=== PATIENT | female | born 1945 | race African-American/Black ===

== ENCOUNTER 2016-12-05 10:16 | Emergency (ER) | payer MEDICARE ==
[~2016-12-05] VITALS: Ht 157.5 cm; Wt 102.1 kg
[2016-12-05 11:07] LABS: BASO # 0.1 x10^3/uL (0.0-0.2); BASO % 1 % (0-3); EOS # 0.2 x10^3/uL (0.0-0.7); EOS % 3 % (0-3); HEMATOCRIT 35.1 % (36.0-47.0); HEMOGLOBIN 11.4 g/dL (12.0-15.5); LYMPH # 1.4 x10^3/uL (1.0-4.8); LYMPH % 25 % (24-48); MEAN CORPUSCULAR HEMOGLOBIN 32 pg (25-35); MEAN CORPUSCULAR HGB CONC 33 g/dL (31-37); MEAN CORPUSCULAR VOLUME 99 fL (79-100); MONO # 0.5 x10^3/uL (0.0-1.1); MONO % 9 % (0-9); NEUT # 3.3 x10^3uL (1.8-7.7); NEUT % 62 % (31-73); PLATELET COUNT 189 x10^3/uL (140-400); RED BLOOD COUNT 3.54 x10^6/uL (3.50-5.40); WHITE BLOOD COUNT 5.3 x10^3/uL (4.0-11.0)
[2016-12-05 11:08] LABS: HEMOGLOBIN ISTAT 12.2 gm/dL; POTASSIUM ISTAT 4.2 mmol/L (3.5-5.0)
--- NOTE | 2016-12-05 11:14 | RAD ---
Portable AP upright view CXR: Clinical indications: Shortness of breath. Comparison: November 17, 2005 Findings: No acute lung infiltrate or pleural effusion or pulmonary edema or lung mass or pneumothorax is seen. The heart size, pulmonary vasculature, mediastinum and both niurka are unremarkable. Impression: No acute radiographic abnormality is seen.
--- NOTE | 2016-12-05 11:18 | EKG ---
[address] [address] Test Date: 2016-12-05 Test Time: 11:03:12 Pat Name: ANGEL HALL Department: Room: Gender: F Quality Assurance Manager: ALEJANDRA : 1945 Requested By: LIZZY BROWN Order Number: [id number] Reading MD: Measurements Intervals [place] Rate: 74 P: 31 MN: 208 QRS: -11 QRSD: 92 T: 24 QT: 368 QTc: 413 Interpretive Statements SINUS RHYTHM VENTRICULAR PREMATURE COMPLEX(ES) LEFTWARD AXIS ABNORMAL ECG RI6.01 Unconfirmed report No previous ECG available for comparison
--- NOTE | 2016-12-05 11:22 | ED.ADGEN ---
Past History Past Medical History: Hypertension Past Surgical History: No Surgical History Alcohol Use: None Drug Use: None Adult General Chief Complaint Chief Complaint cough, pain, sob HPI HPI Patient is a 71 year old female who presents with 3 days off, sinus congestion, shortness of breath. Patient reports exertional dyspnea, no orthopnea or increased peripheral edema. Patient denies any history of lung or cardiac disease. Never been a smoker. Denies any known fevers. Daughter offered her Mucinex but believes that she wasn't taking it. Has not taken anything for her pain. She reports anterior and posterior pain in her torso, worsened with cough or movement. Has a follow-up appointment with Dr. Manzanares tomorrow. Review of Systems Review of Systems Constitutional: Denies fever or chills [] Eyes: Denies change in visual acuity, redness, or eye pain [] HENT: Denies sore throat [] Respiratory: Per history of present illness Cardiovascular: No additional information not addressed in HPI [] GI: Denies abdominal pain, nausea, vomiting, bloody stools or diarrhea [] : Denies dysuria or hematuria [] Musculoskeletal: Denies back pain or joint pain [] Integument: Denies rash or skin lesions [] Neurologic: Denies headache, focal weakness or sensory changes [] Current Medications Current Medications Current Medications Medications (Trade) Dose Ordered Sig/Canelo Start Time Stop Time Status Last Admin Dose Admin Albuterol Sulfate (Ventolin) 2.5 mg 1X ONCE 12/05/16 11:30 12/05/16 11:31 DC 12/05/16 11:32 2.5 MG Albuterol/ Ipratropium (Duoneb) 3 ml 1X ONCE 12/05/16 11:30 12/05/16 11:31 DC 12/05/16 11:23 3 ML Ketorolac Tromethamine (Toradol) 30 mg 1X ONCE 12/05/16 11:30 12/05/16 11:31 DC 12/05/16 11:51 30 MG Allergies Allergies Allergies Coded Allergies Type Severity Reaction Last Updated Verified No Known Drug Allergies 12/05/16 No Physical Exam Physical Exam Constitutional: Well developed, well nourished, no acute distress, non-toxic appearance. Morbid obesity, short of breath with planed forward HENT: Normocephalic, atraumatic, bilateral external ears normal, oropharynx moist, no oral exudates, nose normal. [] Eyes: PERRLA, EOMI, conjunctiva normal, no discharge. [] Neck: Normal range of motion, no tenderness, supple, no stridor. [] Cardiovascular:Heart rate regular rhythm, systolic aortic murmur Lungs & Thorax: Bilateral breath sounds, diminished on the right compared to the left with an expiratory wheeze, no appreciable crackles Abdomen: Bowel sounds normal, soft, no tenderness, no masses, no pulsatile masses. [] Skin: Warm, dry, no erythema, no rash. [] Back: No tenderness, no CVA tenderness. [] Extremities: No tenderness, no cyanosis, no clubbing, ROM intact, trace bilateral lower extremity edema Neurologic: Alert and oriented X 3, normal motor function, normal sensory function, no focal deficits noted. [] Psychologic: Affect normal, judgement normal, mood normal. [] Current Patient Data Vital Signs Vital Signs Date Time Temp Pulse Resp B/P Pulse Ox O2 Delivery O2 Flow Rate FiO2 12/05/16 13:15 63 20 135/68 96 Room Air 12/05/16 10:16 98.6 Lab Results Laboratory Tests Test 12/05/16 09:47 White Blood Count 5.3x10^3/uL (4.0-11.0) Red Blood Count 3.54x10^6/uL (3.50-5.40) Hemoglobin 11.4g/dL (12.0-15.5) L POC Hemoglobin 12.2gm/dL Hematocrit 35.1% (36.0-47.0) L POC Hematocrit 36% Mean Corpuscular Volume 99fL (79-100) Mean Corpuscular Hemoglobin 32pg (25-35) Mean Corpuscular Hemoglobin Concent 33g/dL (31-37) Red Cell Distribution Width 16.0% (11.5-14.5) H Platelet Count 189x10^3/uL (140-400) Neutrophils (%) (Auto) 62% (31-73) Lymphocytes (%) (Auto) 25% (24-48) Monocytes (%) (Auto) 9% (0-9) Eosinophils (%) (Auto) 3% (0-3) Basophils (%) (Auto) 1% (0-3) Neutrophils # (Auto) 3.3x10^3uL (1.8-7.7) Lymphocytes # (Auto) 1.4x10^3/uL (1.0-4.8) Monocytes # (Auto) 0.5x10^3/uL (0.0-1.1) Eosinophils # (Auto) 0.2x10^3/uL (0.0-0.7) Basophils # (Auto) 0.1x10^3/uL (0.0-0.2) POC Sodium 141mmol/L (135-145) POC Potassium 4.2mmol/L (3.5-5.0) POC Chloride 102mmol/L (98-110) POC Total CO2 28mmol/L (23-32) Anion Gap 17mmol/L (6-14) H POC Blood Urea Nitrogen 8mg/dL (8-26) POC Creatinine 1.0mg/dL (0.5-1.4) Glucose Level 107mg/dL (60-99) H POC Ionized Calcium (Viviana) 1.21mmol/L (1.13-1.32) Total Bilirubin 0.8mg/dL (0.2-1.0) Direct Bilirubin 0.2mg/dL (0.0-0.2) Aspartate Amino Transferase (AST) 15U/L (15-37) Alanine Aminotransferase (ALT) 15U/L (14-59) Alkaline Phosphatase 93U/L (46-116) Creatine Kinase 78U/L (26-192) Creatine Kinase MB (Mass) < 0.5ng/mL (0.0-3.6) Creatine Kinase MB Relative Index 0.6% (0-4) POC Troponin I 0.00ng/ml (<0.08) XO-Amr-M-Type Natriuretic Peptide 37pg/mL (0-124) Total Protein 8.1g/dL (6.4-8.2) Albumin 3.2g/dL (3.4-5.0) L EKG EKG [] Radiology/Procedures Radiology/Procedures CXR: I reviewed the patient's chest x-ray which has mild cardiomegaly, trace pleural effusions, bilateral lower lobe atelectasis versus edema, radiology read as no acute abnormality [] Course & Med Decision Making Course & Med Decision Making Pertinent Labs and Imaging studies reviewed. (See chart for details) Chest x-ray and lab work ordered. Patient given DuoNeb breathing treatment along with albuterol and IV Toradol. Pt feeling improved, her repeat lung exam has much improved air movement and wheezing subsided. No clear signs of pneumonia. Pt agreeable to dc plan of prednisone burst, albuterol with inhaler and codeine/guaifenisin cough syrup. f /u with PCP tomorrow and inform her of heart murmur and if this is new, echo indicated. Final Impression Final Impression Bronchospasm Viral upper respiratory infection Heart murmur[] Problems: Dragon Disclaimer Dragon Disclaimer This electronic medical record was generated, in whole or in part, using a voice recognition dictation system. LIZZY BROWN MD Dec 05, 2016 11:22
[2016-12-05] MEDS ORDERED: KETOROLAC 30 MG/ML VIAL. IV ONE (11:30)
[2016-12-05] MEDS ORDERED: IPRATRPIUM/ALBUTEROL 0.5/2.5MG 3 ML NEBU. NEB ONE (11:30)
[2016-12-05] MEDS ORDERED: ALBUTEROL SULFATE 2.5 MG/3 ML NEBU. NEB ONE (11:30)
[2016-12-05 12:44] LABS: ALBUMIN 3.2 g/dL (3.4-5.0); ALK PHOS 93 U/L (46-116); ALT (SGPT) 15 U/L (14-59); AST (SGOT) 15 U/L (15-37); CREATINE KINASE 78 U/L (26-192); TOTAL BILIRUBIN 0.8 mg/dL (0.2-1.0); TOTAL PROTEIN 8.1 g/dL (6.4-8.2)
[2016-12-05] MEDS ORDERED: GUAI120L35 PO (13:07)
[2016-12-05] MEDS ORDERED: ALBU8.5H3 INH (13:07)
[2016-12-05] MEDS ORDERED: PRED50TA PO (13:07)
[2016-12-05 13:09] LABS: DIRECT BILIRUBIN 0.2 mg/dL (0.0-0.2)
[2016-12-05 13:15] VITALS: BP 135/68
== END 2016-12-05 13:15 | disposition home or self-care (01) ==
LOC: ER 10:16
DX: J98.01 Acute bronchospasm (principal); J06.9 Acute upper respiratory infection, unspecified; R01.1 Cardiac murmur, unspecified; I10 Essential (primary) hypertension
CPT/HCPCS: 36415; 71010; 80047; 80076; 82553; 83880; 84484; 85027; 93005; 94640; 96374; 99285; J1885; J7613; J7620

== ENCOUNTER 2017-02-22 10:59 | Emergency (ER) | payer MEDICARE ==
[~2017-02-22] VITALS: Ht 157.5 cm; Wt 126.6 kg
[~2017-02-22 10:59] MED LIST: ALBU8.5H8 INH; GUAI120L35 PO; PRED50TA PO
[2017-02-22 11:58] LABS: BASO % 1 % (0-3); EOS # 0.1 x10^3/uL (0.0-0.7); EOS % 3 % (0-3); HEMATOCRIT 34.2 % (36.0-47.0); HEMOGLOBIN 11.4 g/dL (12.0-15.5); LYMPH % 21 % (24-48); MEAN CORPUSCULAR HEMOGLOBIN 32 pg (25-35); MEAN CORPUSCULAR HGB CONC 33 g/dL (31-37); MEAN CORPUSCULAR VOLUME 97 fL (79-100); MONO # 0.4 x10^3/uL (0.0-1.1); MONO % 8 % (0-9); NEUT # 3.1 x10^3uL (1.8-7.7); NEUT % 67 % (31-73); PLATELET COUNT 188 x10^3/uL (140-400); RED BLOOD COUNT 3.54 x10^6/uL (3.50-5.40); RED CELL DISTRIBUTION WIDTH 15.9 % (11.5-14.5); WHITE BLOOD COUNT 4.6 x10^3/uL (4.0-11.0)
[2017-02-22] MEDS ORDERED: ASPIRIN 81 MG TAB.CHEW PO ONE (12:00)
[2017-02-22 12:15] LABS: ALBUMIN 3.3 g/dL (3.4-5.0); ALBUMIN/GLOBULIN RATIO 0.7 (1.0-1.7); CREATININE 1.1 mg/dL (0.6-1.0); GFR 59.1; MAGNESIUM 1.9 mg/dL (1.8-2.4); POTASSIUM 3.7 mmol/L (3.5-5.1); TOTAL BILIRUBIN 0.7 mg/dL (0.2-1.0)
[2017-02-22] MEDS ORDERED: LOSA1TAB17 PO (12:29)
[2017-02-22] MEDS ORDERED: ASPI-630 PO (12:29)
--- NOTE | 2017-02-22 12:43 | RAD ---
Indication: Chest pain and bilateral lower extremity swelling. Time of exam 12:33 PM Correlation is made with prior study from 12/05/2016. FINDINGS: The heart size is normal. The lungs are clear. No pleural effusion or pneumothorax is identified. The pulmonary vascularity is normal. IMPRESSION: No acute abnormality detected.
--- NOTE | 2017-02-22 12:44 | RAD ---
Indication: Bilateral leg swelling and pain. Grayscale, color-flow and duplex Doppler evaluation of bilateral lower extremity deep venous systems was performed. FINDINGS: There is no evidence of right or left lower extremity DVT. Both lower extremity deep venous systems showed normal compressibility with normal response to augmentation and Valsalva. No fluid collection or mass is detected. IMPRESSION: No evidence of right or left lower extremity DVT.
[2017-02-22] MEDS ORDERED: IOHEXOL 300 MG/ML 75 ML VIAL. IV ONE (12:45)
[2017-02-22 13:04] LABS: BACTERIA,URINE MOD /HPF (0-FEW); BILIRUBIN,URINE NEG (NEG); CLARITY,URINE HAZY; COLOR,URINE YELLOW; GLUCOSE,URINE NEG (NEG); NITRITE,URINE NEG (NEG); UROBILINOGEN,URINE 0.2 mg/dL (0.2 mg/dL)
[2017-02-22 13:05] LABS: SQUAMOUS EPITHELIAL CELL,UR MOD /LPF
--- NOTE | 2017-02-22 13:27 | RAD ---
Indication: Chest pain. Axial imaging through the chest was performed after the administration of intravenous contrast and utilizing the CT angiography protocol. Multiplanar, 3-D and MIP reformations were also performed. Evaluation of the pulmonary arterial system is without evidence of thromboembolism. No filling defects are seen. The thoracic aorta is normal caliber. No dissection is identified. The heart appears enlarged. No pericardial or pleural fluid is identified. No definite axillary, hilar or mediastinal lymphadenopathy is detected. No parenchymal mass or infiltrate is seen. The upper abdomen is unremarkable. Impression: Cardiomegaly. There is no evidence of pulmonary embolism or thoracic aortic dissection. PQRS Compliance Statement: One or more of the following individualized dose reduction techniques were utilized for this examination: 1. Automated exposure control 2. Adjustment of the mA and/or kV according to patient size 3. Use of iterative reconstruction technique
[2017-02-22] MEDS ORDERED: FUROSEMIDE 40 MG/4 ML VIAL IVP ONE (13:30)
[2017-02-22 14:10] VITALS: BP 168/90
--- NOTE | 2017-02-22 14:13 | PHYS DOC ---
General Chief Complaint: LOWER EXT PAIN Stated Complaint: LOWER EXT PAIN/RIGHT ARM PAIN Time Seen by MD: 11:20 Source: patient Exam Limitations: no limitations Problems: History of Present Illness Initial Comments Patient is a 71-year-old female who comes to the ED complaining of leg pain. 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 She had no arm or neck symptoms and those symptoms did resolve spontaneously after a short period. She states she's had some intermittent chest discomforts prior to that however has none since. She says she's had increasing lower extremity swelling over the past weeks to months she denies trauma she denies any shortness of breath or increased abdominal girth. She has a painful lump at the medial aspect of her left lower leg which becomes pronounced when she is standing she also has diffuse bilateral lower extremity tenderness. She also mentions she's had intermittent discomforts as she points to her right sided deltoid muscle insertion but states she's had no discomfort there recently. She denies any new medications she denies cough shortness of breath dyspnea on exertion or claudication symptoms. Her leg swelling improves each night and she says when she wakes in the mornings no swelling is noted. She's been recommended to wear YOMAIRA hose but has not followed up with that. In the department she only complains of bilateral lower extremity discomfort with movement. Timing/Duration: other Severity: moderate Modifying Factors: worse with movement, improves with rest Associated Symptoms: chest pain, diaphoresis, malaise, other Allergies: Coded Allergies: No Known Drug Allergies (Unverified , 12/05/16) Past Medical History Medical History: other (hypertension, left eye blindness, pulmonary embolism, heart murmur) Surgical History: no surgical history Social History Smoker: non-smoker Alcohol: none Drugs: none Review of Systems Constitutional: see HPI, denies chills, denies fever Respiratory: denies cough, denies orthopnea, denies wheezing Cardiovascular: chest pain, edema, denies palpitations, denies syncope Gastrointestinal: denies abdominal pain, denies diarrhea, denies nausea, denies vomiting Musculoskeletal: see HPI, denies back pain, denies joint swelling, denies neck pain Psychiatric/Neurological: denies headache, denies numbness, denies paresthesia , denies weakness Hematologic/Lymphatic: denies blood clots, denies easy bleeding, denies easy bruising Physical Exam General Appearance: no apparent distress, obese Eyes: right eye normal inspection, right eye PERRL, right eye EOMI, left eye other (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) Ear, Nose, Throat: hearing grossly normal, normal ENT inspection, normal pharynx Neck: non-tender, supple Respiratory: chest non-tender, normal breath sounds, no respiratory distress Cardiovascular: normal peripheral pulses, bradycardia, systolic murmur (II/ JONATHON LSB), other (3+ pitting lower extremity edema bilaterally involving the lower legs) Gastrointestinal: normal bowel sounds, non tender, soft Back: no CVA tenderness, no vertebral tenderness Extremities: normal range of motion, other (3+ pitting lower extremity edema involving the lower legs there are no skin changes) Neurologic/Psychiatric: 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 Interpreted by me Two-view chest: No acute cardiopulmonary abnormality, reviewed by me. Lower extremity Dopplers bilaterally: No acute findings negative for DVT. PATIENT: ANGEL HALL ACCOUNT: [id number] : 1945 LOCATION: ER AGE: 71 SEX: F EXAM STATUS: REG ER ORD. PHYSICIAN: ISAC ANDUJAR DO REASON: cp, elev d-dimer, h/o PE PROCEDURE: CT ANGIOGRAPHY CHEST Indication: Chest pain. Axial imaging through the chest was performed after the administration of intravenous contrast and utilizing the CT angiography protocol. Multiplanar, 3-D and MIP reformations were also performed. Evaluation of the pulmonary arterial system is without evidence of thromboembolism. No filling defects are seen. The thoracic aorta is normal caliber. No dissection is identified. The heart appears enlarged. No pericardial or pleural fluid is identified. No definite axillary, hilar or mediastinal lymphadenopathy is detected. No parenchymal mass or infiltrate is seen. The upper abdomen is unremarkable. Impression: Cardiomegaly. There is no evidence of pulmonary embolism or thoracic aortic dissection. PQRS Compliance Statement: One or more of the following individualized dose reduction techniques were utilized for this examination: 1. Automated exposure control 2. Adjustment of the mA and/or kV according to patient size 3. Use of iterative reconstruction technique DICTATED AND SIGNED BY: JOHNATHON LUA MD DATE: 02/22/17 1322 CC: MILAGROS STARKEY MD; ISAC ANDUJAR DO ~ Pertinent labs: D-dimer 2.15, BNP 141, urine 11, creatinine 1.1, creatine kinase 54, troponin less than 0.017 Urinalysis contained products of infection with squamous epithelial contamination, will await culture and sensitivities. I discussed findings at length with the patient. She reiterates the last episode of chest discomfort was Saturday, 5 days ago. Cardiac enzymes are negative , although d-dimer is elevated lower extremity Dopplers as well as CTA of the chest negative for thrombosis. She has no arm tenderness here in the department. She's had no new or progressive symptoms in the department and I feel she is stable for discharge. She received Lasix 20 mg IV in the emergency department and has begun to diurese. I discussed Lasix and potassium as well as YOMAIRA hose and elevation of the lower extremities. I discussed the need for outpatient cardiology evaluation and I feel she is stable for discharge home. She is in agreement and wishes to follow-up as an outpatient without further evaluation in this department. She depressed agreement and understanding of treatment plan. Departure Time of Disposition: 14:16 Disposition: 01 HOME, SELF-CARE Diagnosis: Lower extremity edema, elevated d-dimer, h/o chest Condition: STABLE Patient Instructions: Chest Pain (Nonspecific), [id number], D-Dimer Test, Edema, [id number] Additional Instructions: Elevate lower extremities as tolerated, "pump the brakes" at commercial breaks as discussed. Wear YOMAIRA hose during the day while you are up and on your feet to prevent swelling and complications due to swelling. Continue current medications including aspirin daily. Your urine was sent for culture, those results will be available for your physician in 2-3 days. [id number] baby aspirin daily. Prescription: Lasix 20 mg take 1 daily, potassium chloride 20 mEq daily, [place] 5 mg #10 Take [place] with food and stool softeners to avoid adverse gastrointestinal effects. Follow-up with Dr. Starkey Saturday for recheck and to discuss outpatient cardiology referral. Return to the ED with new or changing symptoms. ISAC ANDUJAR DO Feb 22, 2017 14:13
--- NOTE | 2017-02-22 14:45 | EKG ---
[address] [address] Test Date: 2017-02-22 Test Time: 13:05:20 Pat Name: ANGEL HALL Department: Room: Gender: F Operating Room Rn: : 1945 Requested By: ISAC ANDUJAR Order Number: [id number] Reading MD: Measurements Intervals [place] Rate: 55 P: 36 AL: 258 QRS: -16 QRSD: 92 T: 17 QT: 410 QTc: 394 Interpretive Statements SINUS RHYTHM PROLONGED AL INTERVAL LEFTWARD AXIS QRS(T) CONTOUR ABNORMALITY CONSIDER ANTEROLATERAL MYOCARDIAL DAMAGE RI6.01 Unconfirmed report No previous ECG available for comparison
== END 2017-02-22 14:30 | disposition home or self-care (01) ==
LOC: ER 10:59
DX: R60.0 Localized edema (principal); R79.1 Abnormal coagulation profile; R07.89 Other chest pain; I10 Essential (primary) hypertension; H54.42 Blindness, left eye, normal vision right eye; Z86.711 Personal history of pulmonary embolism
CPT/HCPCS: 36415; 71020; 71275; 80053; 81001; 82550; 83735; 83880; 84484; 85027; 85379; 87086; 93005; 93970; 96374; 99285; J1940; Q9967

== ENCOUNTER 2017-06-14 16:38 | Emergency (ER) | payer MEDICARE ==
[~2017-06-14] VITALS: Ht 157.5 cm; Wt 118.4 kg
[~2017-06-14 16:38] MED LIST changes: +ASPI-630 PO; +LOSA1TAB22 PO
[2017-06-14] MEDS ORDERED: DICL100G18 TP (17:50)
--- NOTE | 2017-06-14 17:55 | PHYS DOC ---
Past History Past Medical History: Glaucoma, Hypertension Past Surgical History: Other Alcohol Use: None Drug Use: None Adult General Chief Complaint Chief Complaint: ELBOW PROBLEM HPI HPI Patient is a 72 year old F who presents with left elbow pain over the past 4 days. She feels that her symptoms are worse with activity and improved with rest. She also feels that palpation makes her pain worse. Her pain is associated with mild swelling over the lateral elbow. She has no injury. She has no other associated symptoms. Review of Systems Review of Systems Constitutional: Denies fever or chills [] Eyes: Denies change in visual acuity, redness, or eye pain [] HENT: Denies nasal congestion or sore throat [] Respiratory: Denies cough or shortness of breath [] Cardiovascular: No additional information not addressed in HPI [] GI: Denies abdominal pain, nausea, vomiting, bloody stools or diarrhea [] : Denies dysuria or hematuria [] Musculoskeletal: Negative except history of present illness Integument: Denies rash or skin lesions [] Neurologic: Denies headache, focal weakness or sensory changes [] Endocrine: Denies polyuria or polydipsia [] Family History Family History Noncontributory Current Medications Current Medications Medications reviewed Allergies Allergies Allergies Coded Allergies Type Severity Reaction Last Updated Verified No Known Drug Allergies 12/05/16 No Physical Exam Physical Exam Constitutional: Well developed, well nourished, no acute distress, non-toxic appearance. [] HENT: Normocephalic, atraumatic, Eyes: EOMI, conjunctiva normal, no discharge. [] Neck: Normal range of motion, no tenderness, supple, no stridor. [] Cardiovascular:Heart rate regular rhythm, no murmur [] Lungs & Thorax: Bilateral breath sounds clear to auscultation [] Abdomen: Bowel sounds normal, soft, no tenderness, no masses, no pulsatile masses. [] Skin: Warm, dry, no erythema, no rash. [] Extremities: Left elbow: Mild swelling over the lateral epicondyle, mild tenderness to palpation over the lateral epicondyle, normal range of motion, strength 5 out of 5 however tenderness with resistance to wrist extension. Neurovascularly intact Neurologic: Alert and oriented X 3, normal motor function, normal sensory function, no focal deficits noted. [] Psychologic: Affect normal, judgement normal, mood normal. [] Current Patient Data Vital Signs Normal vital signs. Please review nursing recommendation for specifics EKG EKG [] Radiology/Procedures Radiology/Procedures Ultrasound left upper extremity Impressions: No DVT. Course & Med Decision Making Course & Med Decision Making Pertinent Labs and Imaging studies reviewed. (See chart for details) Lydia was most concerned that she had a DVT in her arm. Ultrasound was found to be negative for DVT. Her symptoms are most consistent with lateral epicondylitis Dragon Disclaimer Dragon Disclaimer This chart was dictated in whole or in part using Voice Recognition software in a busy, high-work load, and often noisy Emergency Department environment. It may contain unintended and wholly unrecognized errors or omissions. Departure Departure: Impression: Primary Impression: Lateral epicondylitis of elbow Condition: STABLE Referrals: MILAGROS STARKEY MD (PCP) Patient Instructions: Epicondylitis, Lateral (Tennis Elbow) with Rehab- [facility], Tennis Elbow Additional Instructions: Lydia was seen in the emergency department for elbow pain. No emergency medical condition was found on history or physical exam. She did have a normal ultrasound. Her symptoms are most consistent with tennis elbow or lateral epicondylitis. She was given a prescription for Voltaren gel and was advised follow-up with her primary care doctor in the next 3-5 days for further management. Scripts Diclofenac Sodium (VOLTAREN) 100 Gm Gel..gram. 1 GM TP QID, #100 GM 2 Refills Prov: SCARLETT REYNOLDS MD 06/14/17 SCARLETT REYNOLDS MD Jun 14, 2017 17:55
--- NOTE | 2017-06-14 17:59 | RAD ---
Left Upper Extremity Venous Doppler Ultrasound Indication: Left elbow pain. Comparison: None. Procedure: Color Doppler, spectral Doppler, and grayscale imaging was performed of the upper extremity. Imaged veins were jugular, subclavian, axillary, brachial, radial, ulnar, basilic, and cephalic veins. Findings: The veins are patent and demonstrate normal Doppler flow dynamics. There is no evidence of upper extremity venous thrombosis. Impression: No evidence of left upper extremity deep venous thrombosis. Electronically signed by: Narayan Campa MD (06/14/2017 5:55 PM) [facility]
[2017-06-14 18:10] VITALS: BP 156/78
== END 2017-06-14 18:10 | disposition home or self-care (01) ==
LOC: ER 16:38
DX: M77.12 Lateral epicondylitis, left elbow (principal); I10 Essential (primary) hypertension
CPT/HCPCS: 93971; 99284-25

== ENCOUNTER 2017-10-12 11:08 | Emergency (ER) | payer MEDICARE ==
[~2017-10-12] VITALS: Ht 157.5 cm; Wt 118.4 kg
[~2017-10-12 11:08] MED LIST changes: +DICL100G18 TP
[2017-10-12 11:47] LABS: BASO % 1 % (0-3); EOS # 0.1 x10^3/uL (0.0-0.7); EOS % 3 % (0-3); HEMATOCRIT 35.5 % (36.0-47.0); HEMOGLOBIN 11.9 g/dL (12.0-15.5); LYMPH # 1.4 x10^3/uL (1.0-4.8); LYMPH % 32 % (24-48); MEAN CORPUSCULAR HEMOGLOBIN 32 pg (25-35); MEAN CORPUSCULAR HGB CONC 34 g/dL (31-37); MEAN CORPUSCULAR VOLUME 97 fL (79-100); MONO # 0.4 x10^3/uL (0.0-1.1); MONO % 10 % (0-9); NEUT # 2.3 x10^3uL (1.8-7.7); NEUT % 54 % (31-73); PLATELET COUNT 216 x10^3/uL (140-400); RED BLOOD COUNT 3.66 x10^6/uL (3.50-5.40); RED CELL DISTRIBUTION WIDTH 15.9 % (11.5-14.5); WHITE BLOOD COUNT 4.2 x10^3/uL (4.0-11.0)
[2017-10-12 11:54] LABS: CALCIUM 9.2 mg/dL (8.5-10.1); CREATININE 0.9 mg/dL (0.6-1.0); GFR 74.3; POTASSIUM 3.6 mmol/L (3.5-5.1)
[2017-10-12 12:20] VITALS: BP 188/80
--- NOTE | 2017-10-12 12:22 | PHYS DOC ---
Past History Past Medical History: Glaucoma, Hypertension Past Surgical History: Other Alcohol Use: None Drug Use: None Adult General Chief Complaint Chief Complaint: CHEST PAIN HPI HPI Patient is a 72 year old F who presents with sharp left-sided chest and shoulder pain that happened just prior to arrival and lasted only seconds. She had no associated symptoms at this pain. Her pain did recur a total of 2 episodes prior to arrival. Upon evaluation she had no symptoms. She has no other associated symptoms. She has no other exacerbating or alleviating factors. Review of Systems Review of Systems Constitutional: Denies fever or chills [] Eyes: Denies change in visual acuity, redness, or eye pain [] HENT: Denies nasal congestion or sore throat [] Respiratory: Denies cough or shortness of breath [] Cardiovascular: No additional information not addressed in HPI [] GI: Denies abdominal pain, nausea, vomiting, bloody stools or diarrhea [] : Denies dysuria or hematuria [] Musculoskeletal: Denies back pain or joint pain [] Integument: Denies rash or skin lesions [] Neurologic: Denies headache, focal weakness or sensory changes [] Endocrine: Denies polyuria or polydipsia [] All other systems were reviewed and found to be within normal limits, except as documented in this note. Family History Family History No pertinent family medical history was reported Current Medications Current Medications Current medications reviewed Allergies Allergies Allergies Coded Allergies Type Severity Reaction Last Updated Verified No Known Drug Allergies 12/05/16 No Physical Exam Physical Exam Constitutional: Well developed, well nourished, no acute distress, non-toxic appearance. [] HENT: Normocephalic, atraumatic, Eyes: EOMI, conjunctiva normal, no discharge. [] Neck: Normal range of motion, no tenderness, supple, no stridor. [] Cardiovascular:Heart rate regular rhythm, Lungs & Thorax: Bilateral breath sounds clear to auscultation [] Abdomen: Bowel sounds normal, soft, no tenderness, no masses, no pulsatile masses. [] Skin: Warm, dry, no erythema, no rash. [] Back: No tenderness, no CVA tenderness. [] Extremities: No tenderness, no cyanosis, no clubbing, ROM intact, no edema. [] Neurologic: Alert and oriented X 3, normal motor function, normal sensory function, no focal deficits noted. [] Psychologic: Affect normal, judgement normal, mood normal. [] Current Patient Data Vital Signs Vital Signs Date Time Temp Pulse Resp B/P (MAP) Pulse Ox O2 Delivery O2 Flow Rate FiO2 10/12/17 11:08 98.1 58 18 99 Room Air Lab Results Laboratory Tests Test 10/12/17 11:25 10/12/17 11:32 White Blood Count 4.2 x10^3/uL (4.0-11.0) Red Blood Count 3.66 x10^6/uL (3.50-5.40) Hemoglobin 11.9 g/dL (12.0-15.5) L Hematocrit 35.5 % (36.0-47.0) L Mean Corpuscular Volume 97 fL (79-100) Mean Corpuscular Hemoglobin 32 pg (25-35) Mean Corpuscular Hemoglobin Concent 34 g/dL (31-37) Red Cell Distribution Width 15.9 % (11.5-14.5) H Platelet Count 216 x10^3/uL (140-400) Neutrophils (%) (Auto) 54 % (31-73) Lymphocytes (%) (Auto) 32 % (24-48) Monocytes (%) (Auto) 10 % (0-9) H Eosinophils (%) (Auto) 3 % (0-3) Basophils (%) (Auto) 1 % (0-3) Neutrophils # (Auto) 2.3 x10^3uL (1.8-7.7) Lymphocytes # (Auto) 1.4 x10^3/uL (1.0-4.8) Monocytes # (Auto) 0.4 x10^3/uL (0.0-1.1) Eosinophils # (Auto) 0.1 x10^3/uL (0.0-0.7) Basophils # (Auto) 0.0 x10^3/uL (0.0-0.2) Sodium Level 142 mmol/L (136-145) Potassium Level 3.6 mmol/L (3.5-5.1) Chloride Level 106 mmol/L (98-107) Carbon Dioxide Level 28 mmol/L (21-32) Anion Gap 8 (6-14) Blood Urea Nitrogen 18 mg/dL (7-20) Creatinine 0.9 mg/dL (0.6-1.0) Estimated GFR (Cockcroft-Gault) 74.3 Glucose Level 91 mg/dL (70-99) Calcium Level 9.2 mg/dL (8.5-10.1) POC Troponin I 0.01 ng/ml (<0.08) EKG EKG Normal sinus rhythm, no ST changes, normal QRS interval Radiology/Procedures Radiology/Procedures [] Course & Med Decision Making Course & Med Decision Making Pertinent Labs and Imaging studies reviewed. (See chart for details) [] Dragon Disclaimer Dragon Disclaimer This electronic medical record was generated, in whole or in part, using a voice recognition dictation system. Departure Departure: Impression: Primary Impression: Muscle spasm Disposition: HOME, SELF-CARE Condition: STABLE Referrals: MILAGROS STARKEY MD (PCP) Patient Instructions: Muscle Cramps Additional Instructions: Lydia was seen in the emergency department for chest pain. No emergency medical condition was found on history or physical exam. She was found to have a normal EKG and labs. Her symptoms are most consistent with muscle spasm. She was encouraged to return to the emergency room if she develops new or worsening symptoms. She was also advised follow-up with her primary care doctor as needed for further management. SCARLETT REYNOLDS MD Oct 12, 2017 12:22
--- NOTE | 2017-10-12 17:08 | EKG ---
[address] [address] Test Date: 2017-10-12 Test Time: 11:18:21 Pat Name: ANGEL HALL Department: Room: Gender: F Station Attendant: ALEJANDRA : 1945 Requested By: SCARLETT REYNOLDS Order Number: [id number] Reading MD: Grayson Felton Measurements Intervals [place] Rate: 66 P: 26 RI: 244 QRS: -20 QRSD: 94 T: 23 QT: 382 QTc: 402 Interpretive Statements SINUS RHYTHM PROLONGED RI INTERVAL LEFTWARD AXIS ABNORMAL ECG RI6.01 Compared to ECG 02/22/2017 13:05:20 No significant changes Electronically Signed On 10-16-2017 9:49:53 COTTON HEADER by Grayson Felton
== END 2017-10-12 12:20 | disposition home or self-care (01) ==
LOC: ER 11:08
DX: M62.838 Other muscle spasm (principal); R07.89 Other chest pain; M25.512 Pain in left shoulder; I10 Essential (primary) hypertension
CPT/HCPCS: 36415; 80048; 84484; 85025; 93005; 99285-25

== ENCOUNTER 2018-01-19 14:46 | Emergency (ER) | payer MEDICARE ==
[2018-01-19 15:28] LABS: BASO % 1 % (0-3); EOS # 0.1 x10^3/uL (0.0-0.7); EOS % 1 % (0-3); HEMATOCRIT 38.1 % (36.0-47.0); HEMOGLOBIN 12.6 g/dL (12.0-15.5); LYMPH # 1.5 x10^3/uL (1.0-4.8); LYMPH % 26 % (24-48); MEAN CORPUSCULAR HEMOGLOBIN 33 pg (25-35); MEAN CORPUSCULAR HGB CONC 33 g/dL (31-37); MEAN CORPUSCULAR VOLUME 99 fL (79-100); MONO # 0.5 x10^3/uL (0.0-1.1); MONO % 9 % (0-9); NEUT # 3.6 x10^3uL (1.8-7.7); NEUT % 63 % (31-73); PLATELET COUNT 188 x10^3/uL (140-400); RED BLOOD COUNT 3.83 x10^6/uL (3.50-5.40); RED CELL DISTRIBUTION WIDTH 16.5 % (11.5-14.5); WHITE BLOOD COUNT 5.7 x10^3/uL (4.0-11.0)
--- NOTE | 2018-01-19 15:29 | RAD ---
CHEST PA LATERAL History: Short of breath x 2 days Comparison: February 22, 2017 Findings: 2 views of the chest are submitted. There is no infiltrate, pneumothorax, or effusion. The cardiac silhouette is within normal limits in size. The trachea is in the midline. No acute osseous abnormality is identified. There is atherosclerotic calcification near the aortic arch. Impression: 1. There is no evidence of acute cardiopulmonary disease. Electronically signed by: Laith Aranda MD (01/19/2018 3:25 PM) [facility]
--- NOTE | 2018-01-19 15:34 | PHYS DOC ---
Past History Past Medical History: Glaucoma, Hypertension Past Surgical History: Other Alcohol Use: None Drug Use: None Adult General Chief Complaint Chief Complaint: SHORTNESS OF BREATH [facility] HPI 72-year-old female presents with progressive shortness of breath over the last 1 week. 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 The patient has noticed increased shortness of breath with exertion lately. At rest, the shortness of breath goes away. She denies any chest pain or diaphoresis. The patient also states there is some increased swelling of her lower extremities. She has no history of heart problems. She has no history of COPD. She denies fever or chills. She takes medication for blood pressure, but only murmurs to take it about every other day. She has never had a stress test or cardiac catheter. No diagnosis of CHF. Review of Systems Review of Systems Constitutional: Denies fever or chills [] Eyes: Denies change in visual acuity, redness, or eye pain [] HENT: Denies nasal congestion or sore throat [] Respiratory: shortness of breath [] Cardiovascular: No additional information not addressed in HPI [] GI: Denies abdominal pain, nausea, vomiting, bloody stools or diarrhea [] : Denies dysuria or hematuria [] Musculoskeletal: Denies back pain or joint pain [] Integument: Denies rash or skin lesions [] Neurologic: Denies headache, focal weakness or sensory changes [] Endocrine: Denies polyuria or polydipsia [] All other systems were reviewed and found to be within normal limits, except as documented in this note. Allergies Allergies Allergies Coded Allergies Type Severity Reaction Last Updated Verified No Known Drug Allergies 12/05/16 No Physical Exam Physical Exam Constitutional: Well developed, well nourished, no acute distress, non-toxic appearance. [] HENT: Normocephalic, atraumatic, bilateral external ears normal, oropharynx moist, no oral exudates, nose normal. [] Eyes: PERRLA, EOMI, conjunctiva normal, no discharge. [] Neck: Normal range of motion, no tenderness, supple, no stridor. [] Cardiovascular:Heart rate regular rhythm, no murmur [] Lungs & Thorax: Bilateral breath sounds clear to auscultation [] Abdomen: Bowel sounds normal, soft, no tenderness, no masses, no pulsatile masses. [] Skin: Warm, dry, no erythema, no rash. [] Back: No tenderness, no CVA tenderness. [] Extremities: No tenderness, no cyanosis, no clubbing, ROM intact, 2+ pitting edema to the knees [] Neurologic: Alert and oriented X 3, normal motor function, normal sensory function, no focal deficits noted. [] Psychologic: Affect normal, judgement normal, mood normal. [] EKG EKG Sinus rhythm, rate 98, normal axis, prolonged [place] interval, occasional dropped beat, no ST elevations or depressions.[] Radiology/Procedures Radiology/Procedures CHEST PA LATERAL History: Short of breath x 2 days Comparison: February 22, 2017 Findings: 2 views of the chest are submitted. There is no infiltrate, pneumothorax, or effusion. The cardiac silhouette is within normal limits in size. The trachea is in the midline. No acute osseous abnormality is identified. There is atherosclerotic calcification near the aortic arch. Impression: 1. There is no evidence of acute cardiopulmonary disease. Electronically signed by: Laith Aranda MD (01/19/2018 3:25 PM) [facility][] Course & Med Decision Making Course & Med Decision Making Pertinent Labs and Imaging studies reviewed. (See chart for details) The patient's EKG and rhythm strip significant for an occasional dropped beat. She has delayed [place] interval. Her chest x-rays negative. Labs are unremarkable. Troponin is negative. ProBNP is normal. Chest x-ray is unremarkable. I gave her an albuterol breathing treatment she stated feeling much better. I will give her prescription for an albuterol MDI. If the patient's symptoms worsen or she develops new symptoms, she will return to the ED. I will provide a list of PCPs because the patient would like to select a doctor closer to home. [] Dragon Disclaimer Dragon Disclaimer This electronic medical record was generated, in whole or in part, using a voice recognition dictation system. Departure Departure: Referrals: MILAGROS STARKEY MD (PCP) Scripts Albuterol Sulfate (PROAIR HFA INHALER) 8.5 Gm Hfa.aer.ad 1 PUFF INH PRN Q4HRS PRN for SHORTNESS OF BREATH, #1 INHALER 1 Refill Substitution of alternative brand is acceptable. Prov: TSEVEN GALE DO 01/19/18 STEVEN GALE DO January 19, 2018 15:34
[2018-01-19 15:43] LABS: ALBUMIN 3.3 g/dL (3.4-5.0); ALBUMIN/GLOBULIN RATIO 0.7 (1.0-1.7); CALCIUM 9.3 mg/dL (8.5-10.1); GFR 65.8; POTASSIUM 3.8 mmol/L (3.5-5.1); TOTAL BILIRUBIN 0.6 mg/dL (0.2-1.0); TOTAL PROTEIN 8.1 g/dL (6.4-8.2)
--- NOTE | 2018-01-19 15:54 | EKG ---
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
[2018-01-19 16:30] VITALS: BP 160/80
[2018-01-19] MEDS ORDERED: ALBUTEROL SULFATE 2.5 MG/3 ML NEBU. NEB ONE (16:30)
[2018-01-19] MEDS ORDERED: ALBU8.5H8 INH (16:40)
== END 2018-01-19 16:45 | disposition home or self-care (01) ==
LOC: ER 14:46
DX: R06.02 Shortness of breath (principal); R22.43 Localized swelling, mass and lump, lower limb, bilateral; I10 Essential (primary) hypertension; H40.9 Unspecified glaucoma
CPT/HCPCS: 36415; 71046; 80053; 83880; 84484; 85025; 93005; 94640; 99285; J7613

== ENCOUNTER 2019-08-02 15:45 | Emergency (ER) | payer MEDICARE ==
[~2019-08-02] VITALS: Ht 157.5 cm; Wt 108.9 kg
[~2019-08-02 15:45] MED LIST changes: +ALBU2.5V8 INH; -ALBU8.5H8 INH
[2019-08-02 16:04] VITALS: BP 161/91
[2019-08-02] MEDS ORDERED: HYDROcodone/APAP 5/325MG 1 TAB TABLET PO ONE (16:30)
--- NOTE | 2019-08-02 16:43 | PHYS DOC ---
Past History Past Medical History: Arthritis, Glaucoma, Hypertension Past Surgical History: No Surgical History Alcohol Use: None Drug Use: None Adult General Chief Complaint Chief Complaint: MECHANICAL FALL HPI HPI Patient is a 74-year-old female presents to the emergency department for evaluation. She states that on , she and tripped and fell when walking in her front door, landing on her knees, and she complains of bilateral knee pain anteriorly, right greater than left. She states she normally has arthritis. She is able to and delayed but it is painful to do so. She denies any other injuries, denies hitting her head, any headache, neck pain, back pain, or any other extremity pain or injuries. There are no alleviating or exacerbating factors to her symptoms otherwise. Review of Systems Review of Systems Constitutional: Denies fever or chills [] Eyes: Denies change in visual acuity, redness, or eye pain [] HENT: Denies nasal congestion or sore throat [] Respiratory: Denies cough or shortness of breath [] Cardiovascular: The patient denies any shortness of breath, chest pain, palpitations, or orthopnea [] GI: Denies abdominal pain, nausea, vomiting, bloody stools or diarrhea [] : Denies dysuria or hematuria [] Musculoskeletal: Denies back pain or joint pain, other than bilateral knee pain. [] Integument: Denies rash or skin lesions [] Neurologic: Denies headache, focal weakness or sensory changes [] Current Medications Current Medications Current Medications Medications (Trade) Dose Ordered Sig/Canelo Start Time Stop Time Status Last Admin Dose Admin Acetaminophen/ Hydrocodone Bitart (Lortab 5/325) 1 tab 1X ONCE 08/02/19 16:15 08/02/19 16:16 UNV Allergies Allergies Allergies Coded Allergies Type Severity Reaction Last Updated Verified No Known Drug Allergies 12/05/16 No Physical Exam Physical Exam PHYSICAL EXAM: CONSTITUTIONAL: Well developed, well nourished HEAD: normocephalic, atraumatic EENT: PERRL, EOMI. Conjunctivae normal color, sclerae non-icteric; moist mucous membranes. NECK: Supple, non-tender; no meningismus.There is full, painless range of motion of the cervical spine, without any focal bony midline tenderness to palpation. LUNGS: Lungs CTA, breathing even and unlabored. Normal air movement. HEART: Regular rate and rhythm, no murmur CHEST: No deformity; non-tender ABDOMEN: The abdomen is soft, and non-tender, no masses or bruits. EXTREM: There is mild tenderness to palpation to the knees bilaterally, without any warmth, erythema, or significant soft tissue swelling. There is normal range of motion in the knees, hips, and the remainder of the lower extremities are atraumatic, the remainder of extremities demonstrate normal ROM; no deformity, no calf tenderness. Normal pulses palpable in all extremities. There is no pedal edema. SKIN: No rash; no diaphoresis NEURO: Alert; normal speech and cognition; CN's grossly intact; strength grossly intact without focal deficit. BACK: No CVA TTP.There is no bony tenderness to palpation of the thoracic or lumbar spine. Current Patient Data Vital Signs Vital Signs Date Time Temp Pulse Resp B/P (MAP) Pulse Ox O2 Delivery O2 Flow Rate FiO2 08/02/19 16:04 91 18 98 Room Air EKG EKG [] Radiology/Procedures Radiology/Procedures PROCEDURE: KNEE BILAT 3V Study: KNEE BILAT 3V Indication: Fall with knee pain. Comparison: 12/01/2018 Findings: Severe tricompartmental osteoarthrosis involving both knees. There is a predilection for the medial femorotibial compartment on both the right and left with right more so than left articular surface depression, surface irregularity irregularity and very large subchondral cysts. Relatively small right more so than left knee joint effusions without lipohemarthrosis. A definite acute fracture is not seen. Impression: Marked osteoarthrosis at the medial femorotibial compartments on the right more so than left. Degenerative changes are favored to account for the degree of articular surface depression and irregularity and no definite fracture is seen. No lipohemarthrosis to suggest the presence of an intra-articular fracture. Right more so than left knee joint effusions are favored degenerative. [] Course & Med Decision Making Course & Med Decision Making Pertinent Imaging studies reviewed. (See chart for details) [] Dragon Disclaimer Dragon Disclaimer This electronic medical record was generated, in whole or in part, using a voice recognition dictation system. Departure Departure: Impression: Primary Impression: Knee pain Disposition: 01 HOME/RESIDENCE PRIOR TO ADM Condition: STABLE Referrals: MILAGROS STARKEY MD (PCP) Patient Instructions: Arthritis, Nonspecific, Contusion Scripts Acetaminophen With Codeine (TYLENOL WITH CODEINE #3 TABLET) 1 Each Tablet 1 TAB PO PRN Q6HRS PRN for pain MDD 4 Tablet(s), #15 TAB 0 Refills Prov: FRANCISCO JUAREZ MD 08/02/19 FRANCISCO JUAREZ MD Aug 02, 2019 16:43
--- NOTE | 2019-08-02 17:27 | RAD ---
Study: KNEE BILAT 3V Indication: Fall with knee pain. Comparison: 12/01/2018 Findings: Severe tricompartmental osteoarthrosis involving both knees. There is a predilection for the medial femorotibial compartment on both the right and left with right more so than left articular surface depression, surface irregularity irregularity and very large subchondral cysts. Relatively small right more so than left knee joint effusions without lipohemarthrosis. A definite acute fracture is not seen. Impression: Marked osteoarthrosis at the medial femorotibial compartments on the right more so than left. Degenerative changes are favored to account for the degree of articular surface depression and irregularity and no definite fracture is seen. No lipohemarthrosis to suggest the presence of an intra-articular fracture. Right more so than left knee joint effusions are favored degenerative. Electronically signed by: GARRETT HAIDER MD (08/02/2019 5:24 PM) [facility]
[2019-08-02] MEDS ORDERED: ACET-704 PO (17:47)
== END 2019-08-02 17:50 | disposition home or self-care (01) ==
LOC: ER 15:45
DX: M25.562 Pain in left knee (principal); M25.561 Pain in right knee; G89.11 Acute pain due to trauma; M17.0 Bilateral primary osteoarthritis of knee; I10 Essential (primary) hypertension; W18.09XA Striking against other object with subsequent fall, initial encounter; Y93.01 Activity, walking, marching and hiking; Y92.89 Other specified places as the place of occurrence of the external cause; Y99.8 Other external cause status
CPT/HCPCS: 73562; 99284

== ENCOUNTER → 2020-05-24 | Outpatient (CLI) | payer MEDICARE ==
[~2020-05-24] MED LIST changes: +ACET-704 PO
--- NOTE | 2020-05-24 11:29 | RAD ---
EXAM: Bilateral knees, 2 views. HISTORY: Pain. COMPARISON: 08/02/2019 FINDINGS: Frontal and lateral views of both knees are obtained. There is severe right greater than left medial compartment joint space narrowing with subchondral sclerosis, subchondral cyst formation, and marginal spurring. There is associated remodeling involving the medial femoral condyles and medial tibial plateaus. There is right greater than left genu varus. There is moderate bilateral lateral compartment and patellofemoral compartment spurring. There is no fracture, dislocation or subluxation. No joint effusion is seen. IMPRESSION: Severe right greater than left medial compartment predominant osteoarthritis of both knees with associated medial compartment bony remodeling and genu varus. Electronically signed by: Debbi Blackmon MD (05/24/2020 11:26 AM) [id number]
== END | disposition home or self-care (01) ==
LOC: DXRAD 10:18
PROVIDERS: ATTEND Physician Assistant
DX: M17.0 Bilateral primary osteoarthritis of knee (principal); M21.162 Varus deformity, not elsewhere classified, left knee; M21.161 Varus deformity, not elsewhere classified, right knee; M77.32 Calcaneal spur, left foot; M77.31 Calcaneal spur, right foot
CPT/HCPCS: 73560; 73565

== ENCOUNTER → 2021-04-13 | Outpatient (CLI) | payer MEDICARE ==
--- NOTE | 2021-04-13 09:46 | RAD ---
EXAM: CT Abdomen and Pelvis without IV contrast CLINICAL HISTORY: HEMATURIA COMPARISON: none TECHNIQUE: Helical CT of the abdomen and pelvis without intravenous contrast. Axial, coronal and sagi ttal reformatted images were generated. PQRS compliance statement - One or more of the following individualized dose reduction techniques wer e utilized for this study: 1. Automated exposure control 2. Adjustment of the mA and/or kV according to patient size 3. Use of iterative reconstruction technique FINDINGS: Lack of intravenous contrast limits evaluation of solid organs, vasculature, and lymph nodes. Lower chest: Aortic calcifications are seen. Small hiatal hernia. Abdomen and Pelvis: Noncalcified gallstones are seen within the gallbladder. No focal liver lesion. Spleen, adrenal gland s and pancreas are unremarkable. Multiple bilateral renal cysts are seen. No hydronephrosis. No hydroureter. Bladder is unremarkable. Colonic diverticulosis with infiltration about the splenic flexure and distal descending colon consis tent with acute diverticulitis or colitis. Bladder is unremarkable. Uterus and adnexa are grossly unr emarkable. No abdominal or pelvic lymphadenopathy. Aortobiiliac calcifications are seen. Small fat-co ntaining periumbilical hernia is seen. No abdominal or pelvic ascites Bones: Degenerative changes of the spine are unremarkable. IMPRESSION: 1. No renal tract calculus. Renal cysts are seen. 2. Infiltration about colonic diverticula in the distal descending colon and splenic flexure consist ent with diverticulitis. Infectious/inflammatory colitis could have this appearance too. Electronically signed by: Kedar Hidalgo MD (04/13/2021 9:44 AM) [id number]
== END ==
LOC: CT 08:00
PROVIDERS: ATTEND Nurse Practitioner
DX: N28.1 Cyst of kidney, acquired (principal); K57.30 Diverticulosis of large intestine without perforation or abscess without bleeding; I70.0 Atherosclerosis of aorta; K44.9 Diaphragmatic hernia without obstruction or gangrene; K80.20 Calculus of gallbladder without cholecystitis without obstruction; K42.9 Umbilical hernia without obstruction or gangrene
CPT/HCPCS: 74176

== ENCOUNTER → 2021-12-07 | Outpatient (CLI) | payer MEDICARE ==
--- NOTE | 2021-12-07 16:47 | RAD ---
Exam: XR KNEE_AP BILAT STANDING, XR BILATERAL KNEE 1-2 VIEWS History: Chronic knee pain. Comparison: None. Findings: 3 views of the bilateral knees demonstrates normal osseous mineralization. No fracture or dislocation . Severe bilateral tricompartmental degenerative changes with complete loss of the medial tibiofemora l compartment space bilaterally. Subchondral cystic change and sclerosis at the medial tibiofemoral c ompartments. Large tricompartmental osteophytes. No significant effusion. No focal soft tissue swelli ng. Impression: 1. Severe bilateral knee osteoarthritis. Electronically signed by: Johann Aguilar MD (12/07/2021 4:44 PM) [id number]
== END ==
LOC: RAD 13:44
PROVIDERS: ATTEND Orthopaedic Surgery Sports Medicine
DX: M17.0 Bilateral primary osteoarthritis of knee (principal); M25.761 Osteophyte, right knee; M25.762 Osteophyte, left knee; M25.861 Other specified joint disorders, right knee; M25.862 Other specified joint disorders, left knee
CPT/HCPCS: 73565; 73560-50